=== PATIENT | male | born 1925 | race Caucasian/White ===

== ENCOUNTER 2016-08-27 10:46 | Observation (INO) | payer OTHER ==
[2016-08-27] MEDS ORDERED: NS 1,000 ML IV ONE (11:21)
--- NOTE | 2016-08-27 11:29 | CPEKG ---
Heart Rate: 80 RR Interval: 750 P-R Interval: 225 QRSD Interval: 90 QT Interval: 400 QTC Interval: 462 P [place]: 0 QRS [place]: 25 T Wave [place]: -48 EKG Severity - ABNORMAL ECG - EKG Impression: atrial fibrillation EKG Impression: LVH BY VOLTAGE EKG Impression: NONSPECIFIC T ABNORMALITIES, INFERIOR LEADS Electronically Signed By: Mina Talbot 27-Aug-2016 17:00:59
[2016-08-27 11:35] LABS: % IMMATURE GRANULYOCYTES 0.2 % (0.0-1.1); ABSOLUTE IMMATURE GRANULOCYTES 0.01 10^3/uL (0.00-0.10); ADD DIFF? NO; ADD MORPH? NO; ADD SCAN? NO; ATYPICAL LYMPHOCYTE FLAG 0 (0-99); FRAGMENT RBC FLAG 0 (0-99); HEMATOCRIT 48.9 % (40.0-51.0); HEMOGLOBIN 16.4 g/dL (13.7-17.5); LEFT SHIFT FLG 0 (0-99); LIPEMIA HEMOLYSIS FLAG 80 (0-99); MEAN CELL HEMOGLOBIN 32.1 pg (27.9-34.1); MEAN CELL HEMOGLOBIN CONCENTR. 33.5 g/dL (32.4-36.7); MEAN CELL VOLUME 95.7 fL (81.5-99.8); MEAN PLATELET VOLUME 9.5 fL (8.7-11.7); PLATELET CLUMPS FLAG 10 (0-99); PLATELET COUNT 210 10^3/uL (150-400); RED BLOOD CELL COUNT 5.11 10^6/uL (4.40-6.38); RED CELL DISTRIBUTION WIDTH 16.6 % (11.5-15.2)
[2016-08-27 11:46] LABS: INR 1.04 (0.83-1.16); PROTIME(PATIENT) 13.5 SEC (12.0-15.0)
[2016-08-27 11:47] LABS: APTT 32.5 SEC (23.0-38.0)
[2016-08-27 11:50] LABS: ANION GAP 12 mEq/L (8-16); CALCIUM 8.8 mg/dL (8.5-10.4); CARBON DIOXIDE 26 mEq/l (22-31); CHLORIDE 104 mEq/L (97-110); CREATININE 1.1 mg/dL (0.7-1.3); GLOMERULAR FILTRATION RATE > 60; GLUCOSE 117 mg/dL (70-100); POTASSIUM 4.4 mEq/L (3.5-5.2); SODIUM 142 mEq/L (134-144)
[2016-08-27] MEDS ORDERED: HEPARIN 10,000 UNIT/10 ML MDV ONE (13:38)
[2016-08-27] MEDS ORDERED: BUPIVACAINE 0.5% 30 ML SDV ONE (13:38)
[2016-08-27] MEDS ORDERED: ISOPROTERENOL HCL 0.2 MG/ML 5ML AMP ONE (13:38)
[2016-08-27] MEDS ORDERED: LIDOCAINE 1% 30 ML SDV ONE (13:38)
[2016-08-27] MEDS ORDERED: PROPOFOL/EMULSION 500 MG/50 ML BOTTLE IV ONE ×2 (13:49→15:14)
[2016-08-27] MEDS ORDERED: fentaNYL 100 MCG/2 ML INJ ONE (13:49)
[2016-08-27] MEDS ORDERED: OXYCODONE/APAP 5/325 TAB PO PRN (16:04)
[2016-08-27] MEDS ORDERED: ACETAMINOPHEN 325 MG TAB PO PRN (16:04)
[2016-08-27] MEDS ORDERED: ONDANSETRON 4 MG/2 ML VIAL IVP PRN (16:04)
[2016-08-27] MEDS: APIXABAN 5 MG TAB PO SCH (20:41)
[2016-08-27 23:03] LABS: ANION GAP 5 mEq/L (8-16); CALCIUM 7.8 mg/dL (8.5-10.4); CARBON DIOXIDE 28 mEq/l (22-31); CHLORIDE 106 mEq/L (97-110); CREATININE 1.1 mg/dL (0.7-1.3); GLOMERULAR FILTRATION RATE > 60; GLUCOSE 154 mg/dL (70-100); MAGNESIUM 1.9 mg/dL (1.6-2.3); POTASSIUM 4.1 mEq/L (3.5-5.2); SODIUM 139 mEq/L (134-144)
[2016-08-28 04:58] LABS: % IMMATURE GRANULYOCYTES 0.2 % (0.0-1.1); ABSOLUTE IMMATURE GRANULOCYTES 0.01 10^3/uL (0.00-0.10); ADD DIFF? NO; ADD MORPH? NO; ADD SCAN? NO; ATYPICAL LYMPHOCYTE FLAG 20 (0-99); FRAGMENT RBC FLAG 0 (0-99); HEMATOCRIT 42.3 % (40.0-51.0); HEMOGLOBIN 13.6 g/dL (13.7-17.5); LEFT SHIFT FLG 0 (0-99); LIPEMIA HEMOLYSIS FLAG 80 (0-99); MEAN CELL HEMOGLOBIN 31.6 pg (27.9-34.1); MEAN CELL HEMOGLOBIN CONCENTR. 32.2 g/dL (32.4-36.7); MEAN CELL VOLUME 98.1 fL (81.5-99.8); MEAN PLATELET VOLUME 9.4 fL (8.7-11.7); PLATELET CLUMPS FLAG 0 (0-99); PLATELET COUNT 161 10^3/uL (150-400); RED BLOOD CELL COUNT 4.31 10^6/uL (4.40-6.38); RED CELL DISTRIBUTION WIDTH 16.6 % (11.5-15.2)
[2016-08-28 05:08] LABS: ANION GAP 9 mEq/L (8-16); CALCIUM 7.7 mg/dL (8.5-10.4); CARBON DIOXIDE 26 mEq/l (22-31); CHLORIDE 107 mEq/L (97-110); CREATININE 1.1 mg/dL (0.7-1.3); GLOMERULAR FILTRATION RATE > 60; GLUCOSE 98 mg/dL (70-100); POTASSIUM 4.2 mEq/L (3.5-5.2); SODIUM 142 mEq/L (134-144)
[2016-08-28 05:11] LABS: INR 1.19 (0.83-1.16); PROTIME(PATIENT) 15.1 SEC (12.0-15.0)
[2016-08-28 05:15] LABS: CREATINE KINASE-MB FRACTION 2.03 ng/mL (0-3.19); TROPONIN I 0.219 ng/mL (0-0.034)
[2016-08-28 08:09] VITALS: BP 141/95; PULSE 93; RESP 14; TEMP 98; O2SAT 94
--- NOTE | 2016-08-28 08:38 | CPEKG ---
Heart Rate: 99 RR Interval: 606 QRSD Interval: 160 QT Interval: 436 QTC Interval: 560 QRS [place]: -79 T Wave [place]: 92 EKG Severity - ABNORMAL ECG - EKG Impression: AFIB/FLUT AND V-PACED COMPLEXES Electronically Signed By: Mina Talbot 28-Aug-2016 17:38:04
[2016-08-28] MEDS ORDERED: CALCIUM CARBONATE 500 MG TAB PO SCH (09:00)
[2016-08-28] MEDS ORDERED: LISINOPRIL 10 MG TAB PO SCH (09:00)
[2016-08-28] MEDS ORDERED: Herbals/Supplements -Info Only PO SCH (09:00)
[2016-08-28] MEDS ORDERED: MULTIVITAMINS 1 EACH TAB PO SCH (09:00)
[2016-08-28] MEDS ORDERED: LEVOTHYROXINE 75 MCG TAB PO SCH (09:00)
[2016-08-28] MEDS ORDERED: ASPIRIN 81 MG CHEWABLE TAB PO SCH (09:00)
[2016-08-28] MEDS: APIXABAN 5 MG TAB PO SCH (09:21)
--- NOTE | 2016-08-28 11:28 | GDS ---
[f rep st] DISCHARGE SUMMARY PRIMARY SYSTEMS DEVELOPMENT CONSULTANT: Dr. Zeeshan Umana. The patient is also under the care of Drew Romo. DISCHARGE DIAGNOSES: 1. Atrial fibrillation with rapid ventricular rate, status post AV miguel ablation. 2. Prior pacemaker placement. HOSPITAL COURSE: For a detailed H and P, please see prior dictation. Briefly, Hever Peterson is an 89-year-old male with a history of atrial fibrillation with rapid ventricular rates. He does complain of shortness of breath associated with the palpitations. He had a Biotronik pacer placed by Dr. Umana. The patient was then admitted to the hospital by Dr. Drew Romo for an AV miguel ablation. This was performed on August 27, 2016, without any associated complications. The following morning, his troponin was 0.219. He denied any chest discomfort. He was monitored on telemetry, and his rates are elevated secondary to CLS response of his pacer. The CLS response was decreased, but he has remained tachycardic. It may take a few hours for the new set CLS to take effect as per the company rep. He is not currently complaining of any shortness of breath or chest pain. The preliminary results of an echocardiogram were negative for pericardial effusion. PHYSICAL EXAMINATION: GENERAL: Patient appears in no acute distress. VITAL SIGNS: Blood pressure 141/95, heart rate 93, oxygen saturation of 94% on 2 L and 91% on room air, afebrile. LUNGS: Some mild rhonchi at the bases. CARDIAC : Tachycardic. EXTREMITIES: No evidence of edema. His right groin, where access was obtained for the EP study and ablation, is clean and intact without any evidence of infection or hematoma. DISCHARGE MEDICATIONS: Eliquis 5 mg daily, aspirin 81 mg daily, calcium 500 mg daily, levothyroxine 75 mcg daily, lisinopril 10 mg daily, multivitamin daily, herbal supplement daily. PLAN: Hever is currently stable and ready for discharge home. He has been given groin precautions. He will call Dr. Umana's office to schedule a pacemaker interrogation for 1 week. His lower rate will need to be decreased by 10 beats per minute every week for the next few weeks. /[id number]/MODL MTDD
--- NOTE | 2016-08-28 14:19 | EPPROC ---
Electrophysiology Procedure Note: CATHETER MEDIATED ABLATION OF THE AV JUNCTION Procedures performed: 76880 AV node ablation Fluoroscopy INDICATION: Atrial fibrillation, unable to rate control despite maximally tolerated medical therapy Catheters & Anesthesia: The patient arrived in the Electrophysiology Laboratory in the fasting state. Moderate sedation was administered by anesthesiology staff. The right groin and left groin area were prepped and draped in the usual sterile manner. Appropriate non-invasive blood pressure, pulse oximetry and end-tidal CO2 monitoring was established. All catheters were placed percutaneously using the modified Seldinger technique and advanced into position under fluoroscopic guidance). At baseline the patient was noted to be in AF with a mean ventricular rate of 95 bpm. A #7 Swiss deflectable quadrapolar electrode catheter (2mm-5mm-2mm spacing) with 8 mm tip electrode was advanced to the right atrium. Initially short sheath and then SL1 was used. CRD2 catheter was used to identify the location of His. A total of 12 RF applications were delivered. There was complete AV block after RF# 11. Cessation of pacing revealed that there was junctional escape rhythm at a rate of 38 bpm. Pacemaker implantation was done previously. The pacemaker was programmed to a lower rate of 100 ppm to reduce the risk of sudden associated with torsades de pointes. The lower rate will gradually be reduced to 60 ppm after 1 month . Fluoroscopically pacemaker lead positions were unchanged after procedure Pacemaker thresholds and impedances were unchanged after the procedure The catheters were removed. The patient was transferred to the cardiovascular holding area in stable condition. Vascular access sheaths were removed in the holding area. There were no apparent complications. CONCLUSIONS: * Atrial fibrillation with rapid ventricular response. 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 * Junctional escape rhythm at a rate of 38 bpm. * No complications. Patient Problems: Problems Problem Status Diagnosed Chronic Disease Mgmt/Transitional Care Acute Fracture of femoral neck, left Acute Atrial flutter Acute Hypertension Acute Knee osteoarthritis Acute Sick sinus syndrome Acute
--- NOTE | 2016-08-29 10:36 | ECHO ---
[id number] + + [id number] : : [place] [id number] : : [phone] + + Adult Echocardiographic Report + -----+ :Name: PRASHANT OLSON HStudy Date: 08/28/2016 08:43 AM BP: 141/95 mmHg : : Hospital Admission Number: [id number] Location : 211: :: 1925 Gender: Male Height: 70 in : :Age: 89 yrs Race: WH Weight: 189 lb : :Reason For Study: f/u EP study : : BSA: 2.0 meters2 : :History: f/u EP study : + -----+ MMode/2D Measurements & Calculations IVSd: 1.3 cm RVDd: 4.8 cm FS: 31.9 % Ao root diam: LVPWd: 1.0 cm LVIDd: 4.3 cm EDV(Teich): 82.2 ml3.1 cm LVIDs: 2.9 cm ESV(Teich): 32.7 mlLA dimension: EF(Teich): 60.2 % 4.9 cm LVOT diam: 2.2 cmLVLd ap4: 9.0 cm SV(MOD-sp4): LVOT area: EDV(MOD-sp4): 92.0 ml 3.9 cm2 157.0 ml LVLs ap4: 7.5 cm ESV(MOD-sp4): 65.0 ml EF(MOD-sp4): 58.6 % Normal Measurement Values: + + :LVIDd (3.5-5.7cm) IVSd (0.6-1.1cm) LVPWd (0.6-1.1cm) Aortic Root (2.0-3.7cm)Left Atrium (1.5-4.0cm): :LV Vol(d) (76-115ml) LV Vol(s) (29-48ml) Ejec Fraction (50-65%)PV [place] (0.6- 1.2m/s) TV [place]sal[place] (0.4-1.0m/s) : :MV E [place]sal[place] (0.8-1.0m/s)MV A [place] (0.3-1.0m/s)LVOT Arsal[place] (0.7-1.2m/s) Asc Ao Arsalan ( 0.9-1.8m/s) : + + Doppler Measurements & Calculations MV E max arsalan: Ao mean PG: LV V1 max: SV(LVOT): 40.5 cm/sec 13.5 mmHg 79.2 cm/sec 55.1 ml MV A max arsalan: Ao V2 mean: LV V1 max P.0 cm/sec 172.0 cm/sec 2.5 mmHg MV E/A: 0.57 Ao V2 VTI: 42.2 cm LV V1 mean PG: MV dec time: 0.16 sec DARIEL(I,D): 1.3 cm2 1.6 mmHg LV V1 mean: 59.8 cm/sec LV V1 VTI: 14.1 cm PA V2 max: TR max arsalan: 122.2 cm/sec 276.9 cm/sec PA max P.0 mmHg TR max P.7 mmHg RAP systole: 5.0 mmHg RVSP(TR): 35.7 mmHg Left Ventricle The left ventricle is normal in size and function. There is mild concentric left ventricular hypertrophy. Diastolic Function Indeterminate due to afib and pacer.. Ejection Fraction = 55-60%. Abnormal septal motion secondary to pacemaker activity. Right Ventricle The right ventricle is moderately dilated. There is a pacemaker lead in the right ventricle. The right ventricular systolic function is mild to moderately reduced. Atria The left atrium is severely dilated. The Left Atrial Volume is 61 ml/m2. The right atrium is severely dilated. IVC not well visualized. Mitral Valve The mitral valve leaflets appear thickened, but open well. There is no mitral valve stenosis. There is mild mitral regurgitation. Tricuspid Valve The tricuspid valve is normal in structure and function. There is no tricuspid stenosis. There is moderate tricuspid regurgitation. Right ventricular systolic pressure is 36mmHg. There is Doppler evidence for mild pulmonary hypertension. Aortic Valve The aortic valve is trileaflet. Mild-Moderate Aortic Valve Calcification. Mild valvular aortic stenosis. Trace to mild aortic regurgitation. Pulmonic Valve The pulmonic valve is not well visualized. Great Vessels The aortic root is normal size. Pericardium/Pleural trivial pericardial effusion. Conclusion A two-dimensional transthoracic echocardiogram with M-mode and Doppler was performed. The left ventricle is normal in size and function. There is mild concentric left ventricular hypertrophy. Ejection Fraction = 55-60%. The right ventricle is moderately dilated. RV systolic function is mild to moderately reduced. The left atrium is severely dilated. There is mild mitral regurgitation. There is moderate tricuspid regurgitation. Mild valvular aortic stenosis. Trace to mild aortic regurgitation. Final Reading Physician: Hasmukh Key signed on 08/29/2016 10:36 AM Ordering Physician: Drew Romo Performed By: Lorin Cole
== END 2016-08-28 11:51 | disposition home or self-care (01) ==
LOC: FCATH 10:46 → F2W 16:06
PROVIDERS: ADMIT Internal Medicine Cardiovascular Disease; ATTEND Internal Medicine Cardiovascular Disease
PROC: 02583ZZ Destruction of Conduction Mechanism, Percutaneous Approach (ICD-10-PCS; principal; 2016-08-27)
DX: I48.91 Unspecified atrial fibrillation (principal); Z95.0 Presence of cardiac pacemaker; Z79.01 Long term (current) use of anticoagulants; Z79.82 Long term (current) use of aspirin
CPT/HCPCS: 93005; 93306; 93650; C1730; C1732; C1893; J1644; J2704; J3010

== ENCOUNTER → 2016-09-08 | Outpatient (CLI) | payer OTHER ==
[~2016-09-08] MED LIST: IOPAMIDOL (ISOVUE 370) 100 ML BTL IV ONE
--- NOTE | 2016-09-08 13:12 | CT ---
CT Pulmonary Angiogram History: Shortness of breath, elevated d-dimer. Comparison: PA and lateral chest September 08, 2016. CT abdomen and pelvis January 10, 2014. Technique: Axial contrast-enhanced images were obtained through the chest following the uneventful in travenous administration of 90 mL Isovue-370. Creatinine is 1.3. Multiplanar reformations were perfo rmed through the pulmonary arteries. Dose reduction techniques were utilized. Findings: Visualization of peripheral segmental and subsegmental vessels is slightly limited by respi ratory motion, particularly the lung bases. There is no visible pulmonary embolus. There is mild marcy bronchial thickening with scattered mucous plugging, most prominent in the left lower lobe, with mild atelectasis. A left lower lobe granuloma is noted. Moderate cardiomegaly is present. Coronary artery atherosclerosis is noted in the LAD. Single left subclavian pacemaker lead extends to the right vent ricle. 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 No pathologically enlar ged lymph nodes are identified. Multiple compression fractures are unchanged. Multiple old healed rib fractures are present. 1.2-cm indeterminate left adrenal nodule is unchanged in size since 2013, measuring 9 Hounsfield unit s on the current study, consistent with a benign adenoma. Colonic diverticulosis is present without e vidence of diverticulitis. impression: 1. No visible pulmonary embolus. 2. Bronchitis with scattered mucous plugging and mild basilar atelectasis. 3. 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 4. Diverticulosis without evidence of diverticulitis. 5. Coronary artery atherosclerosis in the LAD. 6. Stable 1.2 cm left adrenal adenoma. 7. Additional findings as above. Findings discussed with Dr. Martinez Umana today at 1302 hours.
== END ==
LOC: FIMAGING 12:00
PROVIDERS: ATTEND Internal Medicine Interventional Cardiology
DX: R06.02 Shortness of breath (principal); I48.2 Chronic atrial fibrillation; J40 Bronchitis, not specified as acute or chronic; I77.819 Aortic ectasia, unspecified site; I25.10 Atherosclerotic heart disease of native coronary artery without angina pectoris; K57.90 Diverticulosis of intestine, part unspecified, without perforation or abscess without bleeding; I50.9 Heart failure, unspecified; I27.2 Other secondary pulmonary hypertension; I51.7 Cardiomegaly; Z79.899 Other long term (current) drug therapy; Z98.890 Other specified postprocedural states
CPT/HCPCS: 71020; 71275; Q9967

== ENCOUNTER → 2016-09-08 | Outpatient (CLI) | payer OTHER ==
--- NOTE | 2016-09-08 11:42 | DX ---
Chest, PA and Lateral, 11:20 AM History: Ablation for atrial fibrillation last week, persistent dyspnea and palpitations COMPARISON: May 01, 2015 AP, PA and lateral April 19, 2016 Findings: There is no pneumomediastinum, pneumothorax or pneumopericardium. Chronic cardiomegaly with equalized pulmonary vascularity is stable. Costophrenic gutters remain sharp. Bibasilar scarring rem ains. There is no pulmonary edema. A left chest wall unipolar pacer device remains in place with tip of the lead overlying the right ventricular apex area. There are stable moderate T4 and T8 and mild T 5 compression deformities. No new compressions have developed. 2 orthopedic retention clips again ove rlie the right humeral head. 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 If there is concern for pulmonary venous thrombosis or left atrial thrombus, then CT pulmonary venography might be considere d. A message was left for Dr. Umana, as requested, at 11:40 AM.
== END ==
LOC: FIMAGING 10:51
PROVIDERS: ATTEND Internal Medicine Interventional Cardiology
DX: I48.2 Chronic atrial fibrillation (principal); I50.9 Heart failure, unspecified; I27.2 Other secondary pulmonary hypertension